=== PATIENT | female | born 1990 | race Caucasian/White ===

== ENCOUNTER 2016-09-05 17:46 | Emergency (ER) | payer SELFPAY ==
[2016-09-05] MEDS ORDERED: FAMOTIDINE 20 MG TAB PO ONE (18:19)
[2016-09-05] MEDS ORDERED: DEXAMETHASONE 4 MG TAB PO ONE (18:19)
[2016-09-05] MEDS ORDERED: diphenhydrAMINE 25 MG CAP PO ONE (18:19)
[2016-09-05 18:20] VITALS: BP 122/79; PULSE 106; RESP 16; TEMP 98.2; O2SAT 97
--- NOTE | 2016-09-05 18:23 | UCPHY ---
H & P Patient Type: New Time Seen by Provider: 09/05/16 18:10 HPI/ROS: CHIEF COMPLAINT: Hives and lip swelling HISTORY OF PRESENT ILLNESS: Patient is a 25-year-old female [facility] complaining of swollen upper lip as well as hives that tend to fluctuate throughout the day. They improve when she takes Sharee but then returned after about 4 or 5 hours. She has had the symptoms for about 10 days. She has not had a fever. She otherwise is not feel ill. She has also had occasional dark stool. She has a history of heartburn. She does not feel lightheaded or faint. She denies any trauma. No vomiting or diarrhea. REVIEW OF SYSTEMS: Constitutional: denies: chills, fever, recent illness, recent injury EENTM: denies: blurred vision, double vision, nose congestion Respiratory: denies: cough, shortness of breath Cardiac: denies: chest pain, irregular heart rate, lightheadedness, palpitations Gastrointestinal/Abdominal: See HPI Genitourinary: denies: dysuria, frequency, hematuria, pain Musculoskeletal: denies: joint pain, muscle pain Skin: See HPI Neurological: denies: headache, numbness, paresthesia, tingling, dizziness, weakness Hematologic/Lymphatic: denies: blood clots, easy bleeding, easy bruising Immunologic/allergic: denies: HIV/AIDS, transplant EXAM: GENERAL: Well-appearing, well-nourished and in no acute distress. HEAD: Atraumatic, normocephalic. EYES: Pupils equal round and reactive to light, extraocular movements intact, sclera anicteric, conjunctiva are normal. ENT: Upper lip mildly swollen, no sign of abscess or erythema. Intraoral swelling NECK: Normal range of motion, supple without lymphadenopathy or JVD. LUNGS: Breath sounds clear to auscultation bilaterally and equal. No wheezes rales or rhonchi. HEART: Regular rate and rhythm without murmurs, rubs or gallops. ABDOMEN: Soft, nontender, normoactive bowel sounds. No guarding, no rebound. No masses appreciated. BACK: No CVA tenderness, no spinal tenderness, step-offs or deformities EXTREMITIES: Normal range of motion, no pitting or edema. No clubbing or cyanosis. NEUROLOGICAL: Cranial nerves II through XII grossly intact. Normal speech, normal gait. 5/5 strength, normal movement in all extremities, normal sensation PSYCH: Normal mood, normal affect. SKIN: Small urticarial lesions to left wrist and left knee. Source: Patient Exam Limitations: No limitations - Medical/Surgical History Hx Asthma: No Hx Chronic Respiratory Disease: No Hx Diabetes: No Hx Cardiac Disease: No Hx Renal Disease: No Hx Cirrhosis: No - Family History Significant Family History: No pertinent family hx - Social History Smoking Status: Never smoked Alcohol Use: Sober Drug Use: None Constitutional: Initial Vital Signs Temperature (C) 36.8 C 09/05/16 18:15 Heart Rate 106 H 09/05/16 18:15 Respiratory Rate 16 09/05/16 18:15 Blood Pressure 122/79 H 09/05/16 18:15 O2 Sat (%) 97 09/05/16 18:15 O2 Delivery Mode Room Air Allergies/Adverse Reactions: cat dander Allergy (Verified 09/05/16 18:14) Home Medications: Medication Instructions Recorded Famotidine [Pepcid 20 MG (OTC)] 20 mg PO BID #30 tab 09/05/16 Wellbutrin 100mg (*) 09/05/16 diphenhydrAMINE [Benadryl 50 MG 50 mg PO Q4-6PRN PRN #30 cap 09/05/16 (OTC)] traZODone 09/05/16 Medical Decision Making ED Course/Re-evaluation: The patient appears to be having an allergic reaction. Will treat her with steroids, Benadryl and Pepcid. She will continue the Pepcid for possible peptic ulcer disease. Currently and stools nonbloody dark. She denies having any abdominal pain. She does have what sounds like heartburn or peptic ulcer disease history and is currently living in a stressful situation. She and her counselor understand and agree with this plan. They declined further workup or testing at this point. I also encouraged her to have allergy testing done with this acute episode is resolved. Differential Diagnosis: Partial list of the Differential diagnosis considered include but were not limited to; allergic reaction, angioedema, peptic ulcer disease, reflux and although unlikely based on the history and physical exam, I also considered airway distress, abscess, sepsis, appendicitis, diverticulitis, perforation. I discussed these differential diagnoses and the plan with the patient as well as the usual and expected course. The patient understands that the diagnosis is provisional and that in medicine we are not always correct and that further workup is often warranted. Usual and customary warnings were given. All of the patient's questions were answered. The patient was instructed to return to the emergency department should the symptoms at all worsen or return, otherwise to followup with the physician as we discussed. - Data Points Medications Given: Discontinued Medications Dexamethasone (Decadron) 10 mg PO EDNOW ONE Stop: 09/05/16 18:20 Last Admin: 09/05/16 18:40 Dose: 10 mg Diphenhydramine HCl (Benadryl) 50 mg PO EDNOW ONE Stop: 09/05/16 18:20 Last Admin: 09/05/16 18:40 Dose: 50 mg Famotidine (Pepcid) 40 mg PO EDNOW ONE Stop: 09/05/16 18:20 Last Admin: 09/05/16 18:40 Dose: 40 mg Departure - Departure Disposition: Home, Routine, Self-Care Clinical Impression: Allergic reaction Qualifiers: Encounter type: initial encounter Qualified Code(s): T78.40XA - Allergy, unspecified, initial encounter Condition: Fair Instructions: General Allergic Reaction (ED) Additional Instructions: Take Benadryl 2 tablets every 6 hours. Or you may take an nondrowsy antihistamine every 12 hours over the counter. You were given steroids in the urgent care that should last for 3 days. Also take the Pepcid as an antihistamine and 4 peptic ulcer disease. Continue taking this until you follow up with the regular doctor. Referrals: Dee Khoury MD [Medical Doctor] - As per Instructions Prescriptions: diphenhydrAMINE [Benadryl 50 MG (OTC)] 50 mg PO Q4-6PRN PRN #30 cap PRN Reason: Itching Famotidine [Pepcid 20 MG (OTC)] 20 mg PO BID #30 tab - PQRS PQRS Measurement: Not applicable
== END 2016-09-05 19:00 | disposition home or self-care (01) ==
LOC: CED 17:46
DX: T78.40XA Allergy, unspecified, initial encounter (principal)
CPT/HCPCS: 99204-PO; G0463-PO

== ENCOUNTER 2016-10-28 12:13 | Emergency (ER) | payer MEDICAID ==
[2016-10-28 12:32] VITALS: RESP 16; TEMP 97.7
--- NOTE | 2016-10-28 12:43 | EDPHY ---
H & P Stated Complaint: Sore throat, head congestion, body aches, fever (100.5) x 2 day. Time Seen by Provider: 10/28/16 12:39 HPI/ROS: CHIEF COMPLAINT: Sore throat, cough, fever, body aches HISTORY OF PRESENT ILLNESS: The patient is a 25-year-old female who comes to the emergency department complaining of a sore throat, cough, fever and body aches. She has had the symptoms for about 5 days. 3 of her roommates are here sick with similar symptoms. She denies headaches. No neck stiffness. No significant past medical history. She denies shortness of breath or chest pain. REVIEW OF SYSTEMS: Constitutional: See HPI EENTM: See HPI Respiratory: denies: See HPI Cardiac: denies: chest pain, irregular heart rate, lightheadedness, palpitations Gastrointestinal/Abdominal: denies: abdominal pain, diarrhea, nausea, vomiting, blood streaked stools Genitourinary: denies: dysuria, frequency, hematuria, pain Musculoskeletal: denies: joint pain, muscle pain Skin: denies: lesions, rash, jaundice, bruising Neurological: denies: headache, numbness, paresthesia, tingling, dizziness, weakness Hematologic/Lymphatic: denies: blood clots, easy bleeding, easy bruising Immunologic/allergic: denies: HIV/AIDS, transplant EXAM: GENERAL: Well-appearing, well-nourished and in no acute distress. HEAD: Atraumatic, normocephalic. EYES: Pupils equal round and reactive to light, extraocular movements intact, sclera anicteric, conjunctiva are normal. ENT: TMs normal, nares patent, oropharynx mildly erythematous without exudate . Moist mucous membranes. NECK: Normal range of motion, supple without lymphadenopathy or JVD. LUNGS: Breath sounds clear to auscultation bilaterally and equal. No wheezes rales or rhonchi. HEART: Regular rate and rhythm without murmurs, rubs or gallops. ABDOMEN: Soft, nontender, normoactive bowel sounds. No guarding, no rebound. No masses appreciated. BACK: No CVA tenderness, no spinal tenderness, step-offs or deformities EXTREMITIES: Normal range of motion, no pitting or edema. No clubbing or cyanosis. NEUROLOGICAL: Cranial nerves II through XII grossly intact. Normal speech, normal gait. 5/5 strength, normal movement in all extremities, normal sensation PSYCH: Normal mood, normal affect. SKIN: Warm, dry, normal turgor, no visible rashes or lesions. Source: Patient Exam Limitations: No limitations - Personal History LMP (Females 10-55): 8-14 Days Ago Current Tetanus Diphtheria and Acellular Pertussis (TDAP): Yes Tetanus Vaccine Date: within 10 years - Medical/Surgical History Hx Asthma: No Hx Chronic Respiratory Disease: No Hx Diabetes: No Hx Cardiac Disease: No Hx Renal Disease: No Hx Cirrhosis: No Hx Alcoholism: No Hx HIV/AIDS: No Hx Splenectomy or Spleen Trauma: No Other PMH: Anxiety, depression, opioid abuse - Family History Significant Family History: No pertinent family hx - Social History Smoking Status: Current every day smoker Alcohol Use: Sober Drug Use: None Constitutional: Initial Vital Signs Temperature (C) 36.5 C 10/28/16 12:16 Heart Rate 98 10/28/16 12:16 Respiratory Rate 16 10/28/16 12:16 Blood Pressure 114/65 10/28/16 12:16 O2 Sat (%) 95 10/28/16 12:16 O2 Delivery Mode Room Air Allergies/Adverse Reactions: cat dander Allergy (Verified 10/28/16 12:32) Home Medications: Medication Instructions Recorded Wellbutrin 100mg (*) 09/05/16 traZODone 09/05/16 Hydroxyzine HCl 10/28/16 Seroquel 10/28/16 Medical Decision Making ED Course/Re-evaluation: 1:00 p.m. the patient likely has viral syndrome along with a several other roommates. I will treat her with steroids a decongestant. She is happy with this plan and declines further workup or testing. Differential Diagnosis: Partial list of the Differential diagnosis considered include but were not limited to; viral syndrome, influenza, strep throat and although unlikely based on the history and physical exam, I also considered meningitis, influenza , pneumonia. I discussed these differential diagnoses and the plan with the patient as well as the usual and expected course. The patient understands that the diagnosis is provisional and that in medicine we are not always correct and that further workup is often warranted. Usual and customary warnings were given. All of the patient's questions were answered. The patient was instructed to return to the emergency department should the symptoms at all worsen or return, otherwise to followup with the physician as we discussed. - Data Points Laboratory Results: 10/28/16 10/28/16 10/28/16 Unknown 12:50 12:50 Influenza A,B Rapid NEGATIVE FOR FLU (NEGATIVE) Group A Strep Screen NEGATIVE (NEGATIVE) Group A Strep DNA Pending Medications Given: Discontinued Medications Dexamethasone (Decadron) 10 mg PO EDNOW ONE Stop: 10/28/16 13:15 Last Admin: 10/28/16 13:27 Dose: 10 mg Departure - Departure Disposition: Home, Routine, Self-Care Clinical Impression: Upper respiratory tract infection Qualifiers: URI type: unspecified viral URI Qualified Code(s): J06.9 - Acute upper respiratory infection, unspecified Condition: Fair Instructions: Upper Respiratory Infection (ED) Referrals: NONE *PRIMARY CARE P,. [Primary Care Provider] - As per Instructions Jose Allen MD [Medical Doctor] - As per Instructions
[2016-10-28] MEDS ORDERED: DEXAMETHASONE 4 MG TAB PO ONE (13:14)
[2016-10-28 13:31] VITALS: BP 121/70; PULSE 100; O2SAT 96
== END 2016-10-28 13:31 | disposition home or self-care (01) ==
LOC: CED 12:13
DX: J06.9 Acute upper respiratory infection, unspecified (principal); F17.200 Nicotine dependence, unspecified, uncomplicated
CPT/HCPCS: 87400-PO; 87880-PO